=== PATIENT | female | born 1980 | race Caucasian/White ===

== ENCOUNTER 2017-12-20 11:33 | Emergency (ER) | payer OTHER ==
--- NOTE | 2017-12-20 14:39 | RAD ---
SINUSES 4 VIEWS: HISTORY: Headache, sinus pressure. FINDINGS: The frontal, ethmoid, maxillary, and sphenoid sinuses appear clear. I do not appreciate any fluid or mucosal change. IMPRESSION: Negative sinuses. POS: [facility]
== END 2017-12-20 12:40 | disposition home or self-care (01) ==
LOC: ERS 11:33
DX: R09.81 Nasal congestion (principal); K21.9 Gastro-esophageal reflux disease without esophagitis; I10 Essential (primary) hypertension; Z87.891 Personal history of nicotine dependence; Z79.899 Other long term (current) drug therapy
CPT/HCPCS: 70220

== ENCOUNTER 2018-02-19 18:00 | Outpatient (CLI) | payer OTHER | END 2018-02-19 18:01 | disposition home or self-care (01) | LOC: SLEEPLAB 18:00 | PROVIDERS: ATTEND Family Medicine | DX: G47.9 Sleep disorder, unspecified (principal); G47.33 Obstructive sleep apnea (adult) (pediatric); R53.83 Other fatigue; I10 Essential (primary) hypertension; R06.83 Snoring; Z68.38 Body mass index [BMI] 38.0-38.9, adult | CPT/HCPCS: 95806 ==

== ENCOUNTER 2018-08-29 10:13 | Emergency (ER) | payer OTHER ==
[2018-08-29] MEDS ORDERED: Ketorolac Tromethamine 60 MG/2 ML VIAL ONE (11:23)
--- NOTE | 2018-08-29 11:55 | ULT ---
EXAM: Left lower extremity venous duplex: Deep veins evaluated with color Doppler, spectral analysis, and compression. INDICATIONS: Left lower extremity pain and edema. FINDINGS: Deep veins interrogated include common femoral vein, femoral vein, popliteal vein, and post erior tibial vein. These veins show normal compression and blood flow. No evidence of DVT. IMPRESSION: Negative Left venous duplex exam.
== END 2018-08-29 12:49 | disposition home or self-care (01) ==
LOC: ERS 10:13
DX: S76.912A Strain of unspecified muscles, fascia and tendons at thigh level, left thigh, initial encounter (principal); K21.9 Gastro-esophageal reflux disease without esophagitis; I10 Essential (primary) hypertension; Z87.891 Personal history of nicotine dependence; Z79.899 Other long term (current) drug therapy; X58.XXXA Exposure to other specified factors, initial encounter
CPT/HCPCS: 96372; J1885